=== PATIENT | male | born 1945 | race Caucasian/White ===

== ENCOUNTER 2018-05-06 07:56 | Emergency (ER) | payer MEDICARE, OTHER ==
[2018-05-06] MEDS ORDERED: NORMAL SALINE 1000 ML 1,000 ML IV ONE ×2 (08:37→10:53)
[2018-05-06] MEDS ORDERED: MECLIZINE HCL 25 MG TABLET PO ONE (08:38)
--- NOTE | 2018-05-06 08:43 | ER Document Report ---
ED General - General Chief Complaint: Fever Stated Complaint: FEVER Time Seen by Provider: 05/06/18 08:28 TRAVEL OUTSIDE OF THE [place] IN LAST 30 DAYS: No - HPI Notes: Patient is a 72-year-old male with a history of coronary artery disease, hypertension, hypercholesterolemia, GERD who presents to the ED with complaining of having a 102 fever this morning and feeling dizzy. Patient states that he was outside working yesterday and started to feel heart racing and weakness at that time. He was evaluated by medics and had a 12-lead performed as well as cooling measures which seemed to help. Patient has not had any medicines for his symptoms as of yet. He denies any drug allergies. Patient states that aside from feeling dizzy at this time he has no other concerns or complaints. He has been eating and drinking without any difficulties. He is urinating normally and having normal bowel movements. Denies any headache, fever, head injury, neck pain, changes in vision/speech/ mentation/hearing, URI, sore throat, chest pain, palpitations, syncope, cough, shortness of breath, wheeze, dyspnea, abdominal pain, nausea/vomiting/diarrhea, urinary retention, dysuria, hematuria, loss of control of bowel or bladder, numbness/tingling, muscle paralysis/weakness, or rash. Pt is currently being treated for prostatitis and began tx with bactrim 2 days ago. - Related Data Allergies/Adverse Reactions: No Known Allergies Allergy (Verified 05/06/18 08:48) Past Medical History - Social History Smoking Status: Current Every Day Smoker Family History: Reviewed & Not Pertinent Review of Systems - Review of Systems -: Yes All other systems reviewed and negative Physical Exam - Vital signs Vitals: Temp Pulse Resp BP Pulse Ox 97.6 F 104 H 14 150/84 H 95 05/06/18 08:14 05/06/18 08:14 05/06/18 08:14 05/06/18 08:14 05/06/18 08:14 - Notes Notes: PHYSICAL EXAMINATION: GENERAL: Well-appearing, well-nourished and in no acute distress. A&Ox4. Answers questions appropriately. HEAD: Atraumatic, normocephalic. Non-tender. EYES: Pupils equal round and reactive to light, extraocular movements intact, sclera anicteric, conjunctiva are normal. No nystagmus. ENT: EAC clear b/l. TM's intact b/l without erythema, fluid, or perforation. Nares patent and without discharge. oropharynx clear without exudates. No tonsilar hypertrophy or erythema. Moist mucous membranes. No sinus tenderness. NECK: Normal range of motion, supple without lymphadenopathy. No rigidity. No midline tenderness. LUNGS: Breath sounds clear to auscultation bilaterally and equal. No wheezes rales or rhonchi. HEART: Regular rate and rhythm without murmurs, rubs, gallops. ABDOMEN: Soft, nontender, nondistended abdomen. No guarding, no rebound. No masses appreciated. Normal bowel sounds present. No CVA tenderness bilaterally. Musculoskeletal: Ext b/l: FROM to passive/active. Strength 5+/5. No deficits noted. No bony tenderness of extremities. Beck neg. no asymmetry. Back: FROM to passive/active. Strength 5+/5. No vertebral point tenderness, stepoffs, or deformities. Extremities: No cyanosis, clubbing, or edema b/l. Peripheral pulses 2+. Capillary refill less than 2 seconds. NEUROLOGICAL: NIH 0. GCS 15. Cranial nerves grossly intact. Normal speech. Normal sensory, motor exams. Reflexes 2+ b/l. MICHEL's negative. Pronator drift negative. Heel/rosa, finger/nose wnl. PSYCH: Normal mood, normal affect. SKIN: Warm, Dry, normal turgor, no rashes or lesions noted. Course - Re-evaluation Re-evalutation: 05/06/18 11:39 Reevaluation of patient. Patient is currently feeling much better and without any other dizziness or lightheadedness. Patient's bilirubin is elevated on labs and an ultrasound is pending. Patient's respiratory rate has varied from the high teens to 28 with an oxygen saturation 92-94% on room air. A d-dimer has been added and is pending. Patient otherwise does not have any shortness of breath or chest pain. 05/06/18 14:08 Re-evaluation of patient. Patient states that he does continue to feel like he is back to normal without any return of the dizziness or lightheadedness. Ultrasound did show stones without any acute cholecystitis. Patient's respiratory rate does continue to very from normal to mildly tachypneic, but has remained asymptomatic without any dyspnea, shortness of breath, wheezing, chest pain. D-dimer age-adjusted negative. Second troponin is pending. I did review this case with Dr. Wade who is in agreement with disposition and plan if second troponin comes back negative for discharge. I did review this with the patient and his who are both in agreement as well. 05/06/18 15:25 2nd trop negative. Vital(s) have remained concerning. I did a comprehensive review of his RR/HR/o2 which has maintained tachypnea with episodes of mild hypoxia >91% despite being asymptomatic. Reviewed with Dr. Wade who also eval'd the patient at this time. I personally rechecked temp orally and was 100.4. Pt continues to be asymptomatic otherwise. Dr. Wade would like a CTA of his chest and CTA abd/pelv to further eval around the prostate. Ordered Levaquin IV. 05/06/18 18:27 Patient is an afebrile, well-hydrated, 72-year-old male who presents to the ED with intermittent low-grade temperature, resolved dizziness, and ongoing prostatitis. Patient was also found to have gallstones without cholecystitis. Vitals are acceptable without any significant tachycardia or hypoxia. I personally rechecked his temperature and it was 99.6 orally. Patient states that he is feeling "great." We did ambulate the patient and he maintain oxygen saturation greater than 96% without going tachycardic. CT scans were unremarkable for any acute pathology, but patient was noted to have COPD and a hiatal hernia. I did print out the results and reviewed them with the patient and his . I did note the cardiac calcifications as well as the calcified nodules. CBC, CMP, lipase, lactic acid, urinalysis, EKG/cardiac enzyme 2, chest x-ray were unremarkable for any acute pathology otherwise. Patient has not had any chest pain, dyspnea, or shortness of breath throughout his stay. I did thoroughly review this case with the patient and his who would like to be discharged home. I did review with the patient that this could still be a side effect to his Bactrim medication as well, and the need to monitor closely at this time. Low suspicion for any ACS, PE, pneumothorax, dissection, pericarditis, severe dehydration, acute abdomen, sepsis, meningitis, respiratory compromise, acute intracranial pathology, or other systemic emergent condition at this time. Patient is aware that condition can change from initial presentation and he needs to monitor symptoms closely and seek medical attention with any acute changes. I will send him home with a prescription for meclizine. Conservative measures otherwise for symptoms. Recheck with your PCM/urologist in 2-3 days. Consider consult with a general surgeon as well. Return to the ED with any worsening/concerning symptoms otherwise as reviewed in discharge. Patient and are in agreement. - Vital Signs Vital signs: Temp Pulse Resp BP Pulse Ox 99.6 F 93 25 H 168/81 H 94 05/06/18 18:32 05/06/18 09:40 05/06/18 16:02 05/06/18 16:00 05/06/18 16:02 - Laboratory Result Diagrams: 05/06/18 08:45 05/06/18 08:45 Laboratory results interpreted by me: 05/06/18 05/06/18 05/06/18 08:45 08:45 08:45 WBC 11.1 H RDW 15.5 H Seg Neuts % (Manual) 91 H Band Neutrophils % 2 L Lymphocytes % (Manual) 2 L Abs Neuts (Manual) 10.3 H Abs Lymphs (Manual) 0.3 L D-Dimer 0.66 H Glucose 119 H Magnesium 1.5 L Total Bilirubin 3.1 H Direct Bilirubin 0.5 H AST 86 H ALT 88 H Discharge - Discharge Clinical Impression: Dizziness, Tachypnea, Gall stones Fever Qualifiers: Fever type: unspecified Qualified Code(s): R50.9 - Fever, unspecified Condition: Stable Disposition: HOME, SELF-CARE Instructions: Fever ([facility]), Dizziness ([facility]) Additional Instructions: Maintain adequate fluid and food intake Take home medications as directed healthy diet Monitor blood pressure daily and keep a log Monitor symptoms for any acute changes Recheck with your PCM/Urology in 2-3 days Consider a follow-up with cardiology/general surgeon. Return to the ED with any worsening symptoms and/or development of fever, headache, chest pain, palpitations, syncope, shortness of breath, trouble breathing, abdominal pain, n/v/d, blood in stool/urine, loss of control of bowel /bladder, urinary retention, muscle weakness/paralysis, numbness/tingling, or other worsening symptoms that are concerning to you. Prescriptions: Meclizine HCl 25 mg PO TID PRN #15 tablet PRN Reason: Forms: Elevated Blood Pressure Referrals: BUNNY NICHOLS [NO LOCAL MD] - 05/08/18 GEOFF BILLY MD [ACTIVE STAFF] - Follow up as needed
[2018-05-06 09:09] LABS: HEMATOCRIT 43.4 % (37.9-51.0); HEMOGLOBIN 14.7 g/dL (13.5-17.0); MEAN CORPUSCULAR HEMOGLOBIN 27.9 pg (27.0-33.4); MEAN CORPUSCULAR VOLUME 82 fl (80-97); PLATELET COUNT 176 10^3/uL (150-450); RED BLOOD COUNT 5.29 10^6/uL (4.35-5.55); RED CELL DISTRIBUTION WIDTH 15.5 % (11.5-14.0); WHITE BLOOD COUNT 11.1 10^3/uL (4.0-10.5)
[2018-05-06 09:15] LABS: APPEARANCE,URINE CLEAR; BILIRUBIN,URINE NEGATIVE (NEGATIVE); COLOR,URINE YELLOW; GLUCOSE, URINE NEGATIVE (NEGATIVE); KETONES,URINE NEGATIVE (NEGATIVE); LEUKOCYTE ESTERASE,URINE NEGATIVE (NEGATIVE); NITRITE,URINE NEGATIVE (NEGATIVE); PROTEIN,URINE NEGATIVE (NEGATIVE); URINE SPECIFIC GRAVITY 1.015; UROBILINOGEN,URINE NEGATIVE mg/dL (<2.0)
--- NOTE | 2018-05-06 09:19 | RADIOLOGY REPORT (SQ) ---
EXAM DESCRIPTION: CHEST SINGLE VIEW COMPLETED DATE/TIME: 05/06/2018 9:11 am REASON FOR STUDY: dizziness COMPARISON: None. EXAM PARAMETERS: NUMBER OF VIEWS: One view. TECHNIQUE: Single frontal radiographic view of the chest acquired. RADIATION DOSE: NA LIMITATIONS: None. FINDINGS: LUNGS AND PLEURA: No opacities, masses or pneumothorax. No pleural effusion. MEDIASTINUM AND HILAR STRUCTURES: No masses. Contour normal. HEART AND VASCULAR STRUCTURES: Heart normal in size. Normal vasculature. BONES: No acute findings. HARDWARE: None in the chest. OTHER: Probable hiatal hernia. IMPRESSION: NO ACUTE RADIOGRAPHIC FINDING IN THE CHEST. TECHNICAL DOCUMENTATION: JOB ID: [id number] [employer]- All Rights Reserved Reading location - IP/workstation name: [email or web address]
[2018-05-06 09:38] LABS: ALANINE AMINOTRANSFERASE 88 U/L (21-72); ALBUMIN 3.9 g/dL (3.5-5.0); ALKALINE PHOSPHATASE 75 U/L (38-126); ANION GAP 15 (5-19); ASPARTATE AMINO TRANSFERASE 86 U/L (17-59); BILIRUBIN,DIRECT 0.5 mg/dL (0.0-0.4); BILIRUBIN,TOTAL 3.1 mg/dL (0.2-1.3); BLOOD UREA NITROGEN 14 mg/dL (7-20); CALCIUM 9.2 mg/dL (8.4-10.2); CARBON DIOXIDE 23 mmol/L (22-30); CHLORIDE 100 mmol/L (98-107); CREATINE KINASE 71 U/L (55-170); GLUCOSE 119 mg/dL (75-110); POTASSIUM 4.1 mmol/L (3.6-5.0); SODIUM 138.4 mmol/L (137-145); TOTAL PROTEIN 7.1 g/dL (6.3-8.2)
[2018-05-06 09:42] LABS: ABSOLUTE LYMPHOCYTES# (MANUAL) 0.3 10^3/uL (0.5-4.7); ABSOLUTE MONOCYTES # (MANUAL) 0.4 10^3/uL (0.1-1.4); ABSOLUTE NEUTROPHILS# (MANUAL) 10.3 10^3/uL (1.7-8.2); BAND NEUTROPHILS % (MANUAL) 2 % (3-5); BASOPHILS % (MANUAL) 0 % (0-2); EOSINOPHILS % (MANUAL) 0 % (0-6); LYMPHOCYTES % (MANUAL) 2 % (13-45); MONOCYTES % (MANUAL) 4 % (3-13); OVALOCYTES SLIGHT; PLATELET COMMENT ADEQUATE; POIKILOCYTOSIS SLIGHT; SEGMENTED NEUTROPHILS % (MAN) 91 % (42-78); TOTAL CELLS COUNTED 100
[2018-05-06 09:50] LABS: CREATINE KINASE MB 0.31 ng/mL (<4.55); TROPONIN I < 0.012 ng/mL
--- NOTE | 2018-05-06 10:35 | RADIOLOGY REPORT (SQ) ---
EXAM DESCRIPTION: CT HEAD WITHOUT COMPLETED DATE/TIME: 05/06/2018 10:23 am REASON FOR STUDY: dizziness COMPARISON: None. TECHNIQUE: Axial images acquired through the brain without intravenous contrast. Images reviewed wi th bone, brain and subdural windows. Images stored on PACS. All CT scanners at this facility use dose modulation, iterative reconstruction, and/or weight based d osing when appropriate to reduce radiation dose to as low as reasonably achievable (ALARA). [facility]: Dose Right [facility]: CareDose [facility]: Dose Right [facility]: Teradose 4D [facility]: Ingenic RADIATION DOSE: CT Rad equipment meets quality standard of care and radiation dose reduction techniq ues were employed. CTDIvol: 53.2 mGy. DLP: 991 mGy-cm. mGy. LIMITATIONS: None. FINDINGS: VENTRICLES: Prominent. CEREBRUM: No masses. No hemorrhage. No midline shift. Areas of low density in the white matter mos t likely due to chronic micro-vascular ischemic change. No evidence for acute infarction. There is an old infarct in right frontal lobe MCA distribution. CEREBELLUM: No masses. No hemorrhage. No alteration of density. No evidence for acute infarction. EXTRAAXIAL SPACES: Mild age-related involutional change. No fluid collections. No masses. ORBITS AND GLOBE: No intra- or extraconal masses. Normal contour of globe without masses. CALVARIUM: No fracture. PARANASAL SINUSES: No fluid or mucosal thickening. SOFT TISSUES: No mass or hematoma. OTHER: No other significant finding. IMPRESSION: Generalized atrophy and small-vessel ischemic changes. Old right frontal lobe infarct. No acute intracranial event. EVIDENCE OF ACUTE STROKE: NO. TECHNICAL DOCUMENTATION: JOB ID: [id number] Quality ID # [id number]: Final reports with documentation of one or more dose reduction techniques (e.g., Au tomated exposure control, adjustment of the mA and/or kV according to patient size, use of iterative reconstruction technique) 2010 [employer]- All Rights Reserved Reading location - IP/workstation name: [email or web address]
--- NOTE | 2018-05-06 11:31 | EKG REPORT ---
SEVERITY:- ABNORMAL ECG - SINUS RHYTHM RIGHT BUNDLE BRANCH BLOCK : Confirmed by: Lori Barger MD 06-May-2018 11:30:39
--- NOTE | 2018-05-06 13:49 | RADIOLOGY REPORT (SQ) ---
EXAM DESCRIPTION: U/S ABDOMEN LIMITED W/O DOP COMPLETED DATE/TIME: 05/06/2018 1:06 pm REASON FOR STUDY: elevated LFT's COMPARISON: None. TECHNIQUE: Dynamic and static grayscale images acquired of the abdomen and recorded on PACS. Additio nal selected color Doppler and spectral images recorded. LIMITATIONS: None. FINDINGS: PANCREAS: Midline pancreas unremarkable LIVER: No masses. Echotexture normal. LIVER VASCULATURE: Normal directional flow of the main portal vein and hepatic veins. GALLBLADDER: Tiny stones layer dependently in the gallbladder. No gallbladder wall thickening or per icholecystic fluid. ULTRASOUND-DETECTED FERNANDO'S SIGN: Negative. INTRAHEPATIC DUCTS AND COMMON DUCT: No intrahepatic biliary ductal dilatation. Common duct at the po rta hepatis 4 mm in diameter. Distal most common duct not well seen, tiny distal ductal stone could not be excluded. INFERIOR VENA CAVA: Normal flow. AORTA: No aneurysm. RIGHT KIDNEY: Normal size. Normal echogenicity. No solid or suspicious masses. No hydronephrosis. No calcifications. PERITONEAL AND RIGHT PLEURAL SPACE: No ascites or effusions. OTHER: No other significant findings. IMPRESSION: Tiny stones in the gallbladder. No ultrasound evidence of acute cholecystitis. No biliary ductal dilatation. However, the distal common duct is not well seen, and a distal ductal stone could not be excluded. TECHNICAL DOCUMENTATION: JOB ID: [id number] [employer]- All Rights Reserved Reading location - IP/workstation name: [facility]
[2018-05-06] MEDS ORDERED: LEVOFLOXACIN 500 MG/D5W RTU 500 MG/100 ML RTUPB IV ONE (15:59)
--- NOTE | 2018-05-06 17:18 | RADIOLOGY REPORT (SQ) ---
EXAM DESCRIPTION: CTA CHEST; CT ABD/PELVIS WITH IV ONLY COMPLETED DATE/TIME: 05/06/2018 4:48 pm REASON FOR STUDY: hypoxia, tachypnea; dx'd with prostatitis by Urology, fever COMPARISON: None. CONTRAST TYPE AND DOSE: contrast/concentration: Isovue 350.00 mg/ml; Total Contrast Delivered: 74.0 ml; Total Saline Delivered: 81.0 ml RENAL FUNCTION: Creatinine 0.96 TECHNIQUE: CT angio of the chest performed using helical scanning technique with dynamic intravenous contrast injection. Images reviewed with lung, soft tissue and bone windows. Reconstructed coronal and sagittal MPR images reviewed, with maximum intensity projection reconstructions through the pulmo nary arteries. All images stored on PACS. CT Angio of the abdomen A And pelvis performed with intravenous and with oral contrastusing helical scanning technique with d ynamic intravenous contrast injection. Images reviewed with lung, soft tissue and bone windows. Rec onstructed coronal and sagittal MPR images reviewed. Delayed images for evaluation of the urinary sy stem also acquired and evaluated. All images stored on PACS. All CT scanners at this facility use dose modulation, iterative reconstruction, and/or weight based d osing when appropriate to reduce radiation dose to as low as reasonably achievable (ALARA). [facility]: Dose Right [facility]: CareDose [facility]: Dose Right [facility]: Teradose 4D [facility]: [employer] RADIATION DOSE: 78 mGy . LIMITATIONS: None. FINDINGS: CHEST: LUNGS AND PLEURA: Mild changes of obstructive lung disease are present, of with enlarged airspaces in the bilateral upper lobes. No acute infiltrates. No pleural effusion. No pneumothorax. Smooth noncalcified 5 mm nodule along the right minor fissure (image 1002/241), the right lateral cos tophrenic sulcus (image 133/241), and in the lingula (image 104/241), likely noncalcified granulomas. Follow-up as per Fleischner protocol. HILAR AND MEDIASTINAL STRUCTURES: No identified masses or abnormal nodes. HEART AND VASCULAR STRUCTURES: No aneurysm or dissection. No pulmonary emboli. No pericardial effus ion. Heavy coronary artery calcification. HARDWARE: None. THYROID AND OTHER SOFT TISSUES: No masses. No adenopathy. BONES: No significant finding. OTHER: Large retrocardiac hiatal hernia containing the majority of the stomach fundus. ABDOMEN AND PELVIS: LIVER: Normal size. No masses. No dilated ducts. SPLEEN: Normal size. No focal lesions. PANCREAS: No masses. No significant calcifications. No adjacent inflammation or peripancreatic fluid collections. Pancreatic duct not dilated. GALLBLADDER: Multiple tiny stones in the gallbladder. No gallbladder wall thickening or pericholecys tic fluid. ADRENAL GLANDS: No significant masses or asymmetry. RIGHT KIDNEY AND URETER: No solid masses. Less than 1 cm cyst right lower pole kidney. No significa nt calcification. No hydronephrosis or hydroureter. LEFT KIDNEY AND URETER: No solid masses. Multiple left renal cortical cysts are present, the largest is 2.5 cm in size in the upper pole left kidney. No significant calcification. No hydronephrosis or hydroureter. AORTA AND VESSELS: No abdominal aortic aneurysm. No no abdominal aortic dissection. Renal arteries, S MA, celiac are patent, without flow significant stenosis. RETROPERITONEUM: No retroperitoneal adenopathy, hemorrhage or masses. BOWEL AND PERITONEAL CAVITY: No masses or inflammatory changes. No free fluid or peritoneal masses. No CT evidence of bowel obstruction. No free intraperitoneal air or fluid. APPENDIX: Normal. ABDOMINAL WALL: No masses. No hernias. PELVIS: No mass or free fluid. Normal bladder. Normal size prostate. No pelvic adenopathy. BONES: No significant or acute findings. OTHER: No other significant finding. IMPRESSION: No CT angio evidence of acute pulmonary emboli or thoracic aortic dissection. Changes of obstructive lung disease. Multiple 5 mm lung parenchymal nodules likely noncalcified gran ulomas. Follow-up as per Fleischner criteria. Large retrocardiac hiatal hernia containing the stomach fundus. Heavy proximal left and right higginboth[place] ry artery calcifications. No CTA evidence of abdominal aortic aneurysm or dissection. No acute findings over the abdomen or pelvis. TECHNICAL DOCUMENTATION: JOB ID: [id number] Quality ID # [id number]: Final reports with documentation of one or more dose reduction techniques (e.g., Au tomated exposure control, adjustment of the mA and/or kV according to patient size, use of iterative reconstruction technique) 2010 [employer]- All Rights Reserved Reading location - IP/workstation name: [email or web address]
--- NOTE | 2018-05-06 17:19 | RADIOLOGY REPORT (SQ) ---
EXAM DESCRIPTION: CTA CHEST; CT ABD/PELVIS WITH IV ONLY COMPLETED DATE/TIME: 05/06/2018 4:48 pm REASON FOR STUDY: hypoxia, tachypnea; dx'd with prostatitis by Urology, fever COMPARISON: None. CONTRAST TYPE AND DOSE: contrast/concentration: Isovue 350.00 mg/ml; Total Contrast Delivered: 74.0 ml; Total Saline Delivered: 81.0 ml RENAL FUNCTION: Creatinine 0.96 TECHNIQUE: CT angio of the chest performed using helical scanning technique with dynamic intravenous contrast injection. Images reviewed with lung, soft tissue and bone windows. Reconstructed coronal and sagittal MPR images reviewed, with maximum intensity projection reconstructions through the pulmo nary arteries. All images stored on PACS. CT Angio of the abdomen A And pelvis performed with intravenous and with oral contrastusing helical scanning technique with d ynamic intravenous contrast injection. Images reviewed with lung, soft tissue and bone windows. Rec onstructed coronal and sagittal MPR images reviewed. Delayed images for evaluation of the urinary sy stem also acquired and evaluated. All images stored on PACS. All CT scanners at this facility use dose modulation, iterative reconstruction, and/or weight based d osing when appropriate to reduce radiation dose to as low as reasonably achievable (ALARA). [facility]: Dose Right [facility]: CareDose [facility]: Dose Right [facility]: Teradose 4D [facility]: [employer] RADIATION DOSE: 78 mGy . LIMITATIONS: None. FINDINGS: CHEST: LUNGS AND PLEURA: Mild changes of obstructive lung disease are present, of with enlarged airspaces in the bilateral upper lobes. No acute infiltrates. No pleural effusion. No pneumothorax. Smooth noncalcified 5 mm nodule along the right minor fissure (image 1002/241), the right lateral cos tophrenic sulcus (image 133/241), and in the lingula (image 104/241), likely noncalcified granulomas. Follow-up as per Fleischner protocol. HILAR AND MEDIASTINAL STRUCTURES: No identified masses or abnormal nodes. HEART AND VASCULAR STRUCTURES: No aneurysm or dissection. No pulmonary emboli. No pericardial effus ion. Heavy coronary artery calcification. HARDWARE: None. THYROID AND OTHER SOFT TISSUES: No masses. No adenopathy. BONES: No significant finding. OTHER: Large retrocardiac hiatal hernia containing the majority of the stomach fundus. ABDOMEN AND PELVIS: LIVER: Normal size. No masses. No dilated ducts. SPLEEN: Normal size. No focal lesions. PANCREAS: No masses. No significant calcifications. No adjacent inflammation or peripancreatic fluid collections. Pancreatic duct not dilated. GALLBLADDER: Multiple tiny stones in the gallbladder. No gallbladder wall thickening or pericholecys tic fluid. ADRENAL GLANDS: No significant masses or asymmetry. RIGHT KIDNEY AND URETER: No solid masses. Less than 1 cm cyst right lower pole kidney. No significa nt calcification. No hydronephrosis or hydroureter. LEFT KIDNEY AND URETER: No solid masses. Multiple left renal cortical cysts are present, the largest is 2.5 cm in size in the upper pole left kidney. No significant calcification. No hydronephrosis or hydroureter. AORTA AND VESSELS: No abdominal aortic aneurysm. No no abdominal aortic dissection. Renal arteries, S MA, celiac are patent, without flow significant stenosis. RETROPERITONEUM: No retroperitoneal adenopathy, hemorrhage or masses. BOWEL AND PERITONEAL CAVITY: No masses or inflammatory changes. No free fluid or peritoneal masses. No CT evidence of bowel obstruction. No free intraperitoneal air or fluid. APPENDIX: Normal. ABDOMINAL WALL: No masses. No hernias. PELVIS: No mass or free fluid. Normal bladder. Normal size prostate. No pelvic adenopathy. BONES: No significant or acute findings. OTHER: No other significant finding. IMPRESSION: No CT angio evidence of acute pulmonary emboli or thoracic aortic dissection. Changes of obstructive lung disease. Multiple 5 mm lung parenchymal nodules likely noncalcified gran ulomas. Follow-up as per Fleischner criteria. Large retrocardiac hiatal hernia containing the stomach fundus. Heavy proximal left and right higginboth[place] ry artery calcifications. No CTA evidence of abdominal aortic aneurysm or dissection. No acute findings over the abdomen or pelvis. TECHNICAL DOCUMENTATION: JOB ID: [id number] Quality ID # [id number]: Final reports with documentation of one or more dose reduction techniques (e.g., Au tomated exposure control, adjustment of the mA and/or kV according to patient size, use of iterative reconstruction technique) 2010 [employer]- All Rights Reserved Reading location - IP/workstation name: [email or web address]
[2018-05-06 18:53] VITALS: BP 163/87
== END 2018-05-06 19:12 | disposition home or self-care (01) ==
LOC: ER 07:56
DX: N41.9 Inflammatory disease of prostate, unspecified (principal); K80.20 Calculus of gallbladder without cholecystitis without obstruction; R50.9 Fever, unspecified; R42 Dizziness and giddiness; J44.9 Chronic obstructive pulmonary disease, unspecified; R91.8 Other nonspecific abnormal finding of lung field; K44.9 Diaphragmatic hernia without obstruction or gangrene; R06.82 Tachypnea, not elsewhere classified; R09.02 Hypoxemia; I25.10 Atherosclerotic heart disease of native coronary artery without angina pectoris; I10 Essential (primary) hypertension; F17.200 Nicotine dependence, unspecified, uncomplicated
CPT/HCPCS: 93005; 99284; 96361; 96365; 36415; 87040; 87086; 82553; 82550; 83605; 83690; 83735; 85025; 80053; 81001; 84484; 85379; 71045; 76705; 70450; 71275; 74177; 93010; J1956; A9270; J7030